=== PATIENT | male | born 1955 | race Caucasian/White ===

== ENCOUNTER 2017-10-06 05:40 | Inpatient (IN) | payer OTHER ==
[2017-10-02 16:17] LABS: ADD MAN DIFF? NO
[2017-10-02 16:29] LABS: WHITE BLOOD COUNT 15.1 10^3/ul (4.8-10.8)
[2017-10-02 16:29] LABS: BASOPHIL # 0.1 10^3/ul (0.0-0.1); BASOPHILS % 0.5 % (0.0-2.0); HEMATOCRIT 47.1 % (42.0-52.0); HEMOGLOBIN 15.8 g/dl (14.0-18.0); LYMPHOCYTES # 1.6 10^3/ul (0.8-2.9); LYMPHOCYTES % 10.8 % (15.0-51.0); MEAN CORPUSCULAR HEMOGLOBIN 27.2 pg (29.0-33.0); MEAN CORPUSCULAR HGB CONC 33.5 g/dl (32.0-37.0); MEAN CORPUSCULAR VOLUME 81.1 fl (82.0-101.0); MEAN PLATELET VOLUME 9.4 fl (7.4-10.4); MONOCYTE # 1.4 10^3/ul (0.3-0.9); MONOCYTES % 9.5 % (0.0-11.0); NEUTROPHIL # 11.6 10^3/ul (1.6-7.5); NEUTROPHILS % 76.9 % (39.0-77.0); PLATELET COUNT 378 10^3/UL (140-415); RED BLOOD COUNT 5.81 10^6/ul (4.70-6.10); RED CELL DISTRIBUTION WIDTH 12.7 % (11.5-14.5)
[2017-10-06] MEDS: LACTATED RINGER'S 1,000 ML (ENTER RATE) IV* (06:00)
[2017-10-06] MEDS: CEFAZOLIN 2 GM/50 ML (PMX) 50 ML IVPB (06:48)
[2017-10-06] MEDS ORDERED: CEFAZOLIN 1 GM INJ (07:00)
[2017-10-06] MEDS ORDERED: MIDAZOLAM 1 MG/ML 2 ML INJ (07:11)
[2017-10-06] MEDS ORDERED: GELATIN SIZE 100 SPONGE (07:20)
[2017-10-06] MEDS ORDERED: THROMBIN 5000 UNIT VIAL (07:20)
[2017-10-06] MEDS: BUPIVACAINE 0.25% (MPF) 30 ML INJ (07:38)
[2017-10-06] MEDS: POLYMYXIN/BACITRACIN 1L IRRIG (07:38)
[2017-10-06] MEDS ORDERED: LIDOCAINE 2% (SDV) 5 ML INJ (07:58)
[2017-10-06] MEDS ORDERED: FAMOTIDINE 20 MG INJ (07:58)
[2017-10-06] MEDS ORDERED: ONDANSETRON 4 MG INJ (07:58)
[2017-10-06] MEDS ORDERED: DEXAMETHASONE 4 MG/ML 1 ML INJ (07:58)
[2017-10-06] MEDS ORDERED: PROPOFOL 20 ML (07:58)
[2017-10-06] MEDS ORDERED: SUCCINYLCHOLINE CHLORIDE 100 MG/5 ML SYG IV (07:58)
[2017-10-06] MEDS ORDERED: ROCURONIUM 50 MG INJ (07:58)
[2017-10-06] MEDS ORDERED: EPHEDrine SULFATE 50 MG/5 ML SYG ×2 (07:59→09:38)
[2017-10-06] MEDS ORDERED: THROMBIN(HUM PLAS)/FIBRINOG/CA 5 ML VIAL TOP (08:26)
[2017-10-06] MEDS ORDERED: NEOSTIGMINE 3 MG/3 ML SYRINGE (08:59)
[2017-10-06] MEDS ORDERED: GLYCOPYRROLATE 0.4 MG INJ ×2 (08:59→09:24)
[2017-10-06] MEDS ORDERED: HYDROmorphONE (0.2 MG/ML) 10ML SYG IV (09:00)
[2017-10-06] MEDS ORDERED: ONDANSETRON 4 MG INJ IV ×2 (09:00→10:30)
[2017-10-06] MEDS ORDERED: FENTAnyl 50 MCG/ML VIAL IV (09:00)
[2017-10-06] MEDS ORDERED: DIPHENHYDRAMINE 50 MG INJ IV (09:00)
[2017-10-06] MEDS ORDERED: PROCHLORPERAZINE 10 MG INJ IV (09:00)
[2017-10-06] MEDS ORDERED: MEPERIDINE 25 MG INJ IV (09:00)
[2017-10-06] MEDS ORDERED: ACETAMINOPHEN 1000MG/100ML IV 100 ML (09:33)
[2017-10-06] MEDS: DEXTROSE 5%-0.45% NACL 1,000 ML IV ×2 (10:14→19:33)
[2017-10-06] MEDS ORDERED: HYDROmorphONE 0.2 MG/ML PCA (10:25)
[2017-10-06] MEDS ORDERED: morphine 1 MG/ML 30 ML (PCA) (10:28)
[2017-10-06] MEDS ORDERED: BETHANECHOL 25 MG TAB PO (10:30)
[2017-10-06] MEDS ORDERED: ZOLPIDEM 5 MG TAB PO (10:30)
[2017-10-06] MEDS ORDERED: HYDROCODONE/APAP (5/325) TAB PO (10:30)
[2017-10-06] MEDS ORDERED: DIAZEPAM 5 MG/ML SYG IM (10:30)
[2017-10-06] MEDS ORDERED: PROCHLORPERAZINE 10 MG TAB PO (10:30)
[2017-10-06] MEDS ORDERED: CEPASTAT LOZENGE MT (10:30)
[2017-10-06] MEDS ORDERED: TRIMETHOBENZAMIDE 100 MG/ML VIAL IM (10:30)
[2017-10-06] MEDS ORDERED: NACL 0.9% 3 ML SYG IV (10:30)
[2017-10-06] MEDS ORDERED: NALOXONE (0.4 MG/ML) INJ IV (10:30)
[2017-10-06] MEDS: morphine 1 MG/ML 30 ML (PCA) IV (10:39)
[2017-10-06] MEDS: CEFAZOLIN 1 GM/50 ML (PMX) 50 ML IVPB ×3 (12:19→23:29)
[2017-10-06] MEDS: DIAZEPAM 5 MG TAB PO ×2 (17:45→21:54)
[2017-10-06] MEDS: RANITIDINE 150 MG TAB PO (20:24)
[2017-10-06] MEDS: ATORVASTATIN 20 MG TAB PO (20:24)
[2017-10-07 05:10] LABS: HEMATOCRIT 37.7 % (42.0-52.0); HEMOGLOBIN 12.6 g/dl (14.0-18.0)
[2017-10-07] MEDS: CEFAZOLIN 1 GM/50 ML (PMX) 50 ML IVPB (05:32)
[2017-10-07] MEDS: LANSOPRAZOLE 30 MG CAP PO (05:32)
[2017-10-07] MEDS: DEXTROSE 5%-0.45% NACL 1,000 ML IV ×2 (05:33→15:15)
[2017-10-07 05:40] LABS: ANION GAP 13 (8-16); BLOOD UREA NITROGEN 11 mg/dl (7-20); CALCIUM 8.7 mg/dl (8.4-10.2); CARBON DIOXIDE 29 mmol/L (21-31); CHLORIDE 102 mmol/L (97-110); CREATININE 0.82 mg/dl (0.61-1.24); GLUCOSE 122 mg/dl (70-220); POTASSIUM 3.9 mmol/L (3.5-5.1); SODIUM 140 mmol/L (135-144)
[2017-10-07] MEDS: LACTATED RINGER'S 1,000 ML (ENTER RATE) IV* (05:46)
[2017-10-07 06:05] LABS: FREE T4 (FREE THYROXINE) 1.12 ng/dl (0.78-2.44)
[2017-10-07 06:20] LABS: THYROID STIMULATING HORMONE 0.828 MIU/L (0.465-4.680)
[2017-10-07] MEDS: HYDROCODONE/APAP (5/325) TAB PO ×2 (08:57→12:59)
[2017-10-07] MEDS: DOCUSATE SODIUM 100 MG CAP PO ×2 (08:58→21:17)
[2017-10-07] MEDS: BETHANECHOL 25 MG TAB PO ×2 (08:58→12:59)
[2017-10-07] MEDS: ASCORBIC ACID 500 MG TAB PO ×2 (08:58→21:15)
[2017-10-07] MEDS: FERROUS SULFATE (EC) 325 MG TAB PO ×3 (08:58→21:15)
[2017-10-07] MEDS: RANITIDINE 150 MG TAB PO ×2 (08:58→21:17)
[2017-10-07] MEDS: NEBIVOLOL 5 MG TAB PO ×2 (09:00→21:17)
[2017-10-07 09:30] LABS: ADD UMIC YES; UR ASCORBIC ACID NEGATIVE (NEGATIVE); UR BACTERIA FEW /HPF (NONE SEEN); UR BILIRUBIN (Dip) NEGATIVE (NEGATIVE); UR BLOOD (Dip) 1+ mg/dL (NEGATIVE); UR CLARITY CLEAR (CLEAR); UR COLOR STRAW (YELLOW); UR GLUCOSE (Dip) NEGATIVE (NEGATIVE); UR KETONES (Dip) NEGATIVE (NEGATIVE); UR LEUKOCYTE ESTERASE (Dip) NEGATIVE Leu/ul (NEGATIVE); UR NITRITE (Dip) NEGATIVE (NEGATIVE); UR RBC 2 /HPF (0-5); UR SPECIFIC GRAVITY (Dip) 1.004 (1.003-1.030); UR TOTAL PROTEIN (Dip) NEGATIVE (NEGATIVE); UR UROBILINOGEN (Dip) NEGATIVE (NEGATIVE); UR WBC 0 /HPF (0-5)
[2017-10-07] MEDS: DIAZEPAM 5 MG TAB PO (17:39)
[2017-10-07] MEDS: ATORVASTATIN 20 MG TAB PO (21:15)
[2017-10-08] MEDS: HYDROCODONE/APAP (5/325) TAB PO (01:31)
[2017-10-08] MEDS: DEXTROSE 5%-0.45% NACL 1,000 ML IV ×3 (02:14→22:14)
[2017-10-08] MEDS: LACTATED RINGER'S 1,000 ML (ENTER RATE) IV* (06:00)
[2017-10-08] MEDS: LANSOPRAZOLE 30 MG CAP PO (06:20)
[2017-10-08] MEDS: DOCUSATE SODIUM 100 MG CAP PO ×2 (08:42→21:27)
[2017-10-08] MEDS: TAMSULOSIN (SR) 0.4 MG CAP PO ×2 (08:42→21:28)
[2017-10-08] MEDS: FERROUS SULFATE (EC) 325 MG TAB PO ×3 (08:42→21:27)
[2017-10-08] MEDS: BETHANECHOL 25 MG TAB PO ×3 (08:42→23:48)
[2017-10-08] MEDS: RANITIDINE 150 MG TAB PO ×2 (08:42→21:28)
[2017-10-08] MEDS: ASCORBIC ACID 500 MG TAB PO ×2 (08:42→21:29)
[2017-10-08] MEDS: ACETAMINOPHEN 325 MG TAB PO ×2 (14:45→20:07)
[2017-10-08] MEDS: AL HYDROX/MG HYDROX/SIMETH 30 ML CUP PO (20:07)
[2017-10-08] MEDS: NEBIVOLOL 5 MG TAB PO (21:28)
[2017-10-08] MEDS: ATORVASTATIN 20 MG TAB PO (21:28)
[2017-10-09] MEDS: LACTATED RINGER'S 1,000 ML (ENTER RATE) IV* (06:00)
[2017-10-09] MEDS: BETHANECHOL 25 MG TAB PO ×4 (06:01→23:23)
[2017-10-09] MEDS: LANSOPRAZOLE 30 MG CAP PO (06:01)
[2017-10-09] MEDS: DEXTROSE 5%-0.45% NACL 1,000 ML IV ×2 (08:14→17:10)
[2017-10-09] MEDS: FERROUS SULFATE (EC) 325 MG TAB PO ×3 (08:22→20:12)
[2017-10-09] MEDS: DOCUSATE SODIUM 100 MG CAP PO ×2 (08:22→20:14)
[2017-10-09] MEDS: TAMSULOSIN (SR) 0.4 MG CAP PO ×2 (08:22→20:14)
[2017-10-09] MEDS: ASCORBIC ACID 500 MG TAB PO ×2 (08:22→20:12)
[2017-10-09] MEDS: RANITIDINE 150 MG TAB PO ×2 (08:22→20:14)
[2017-10-09] MEDS: ACETAMINOPHEN 325 MG TAB PO ×2 (11:31→20:48)
[2017-10-09] MEDS: ATORVASTATIN 20 MG TAB PO (20:12)
[2017-10-09] MEDS: NEBIVOLOL 5 MG TAB PO (20:13)
[2017-10-09] MEDS: DIPHENHYDRAMINE 50 MG CAP PO (23:23)
[2017-10-10] MEDS: DEXTROSE 5%-0.45% NACL 1,000 ML IV (03:26)
[2017-10-10] MEDS: LACTATED RINGER'S 1,000 ML (ENTER RATE) IV* (03:27)
[2017-10-10] MEDS: BETHANECHOL 25 MG TAB PO (06:11)
[2017-10-10] MEDS: LANSOPRAZOLE 30 MG CAP PO (06:11)
[2017-10-10] MEDS: DOCUSATE SODIUM 100 MG CAP PO (09:19)
[2017-10-10] MEDS: ASCORBIC ACID 500 MG TAB PO (09:19)
[2017-10-10] MEDS: FERROUS SULFATE (EC) 325 MG TAB PO (09:19)
[2017-10-10] MEDS: RANITIDINE 150 MG TAB PO (09:19)
[2017-10-10] MEDS: TAMSULOSIN (SR) 0.4 MG CAP PO (09:20)
== END 2017-10-10 10:19 | disposition home or self-care (01) | DRG 519 ==
LOC: REC 05:40 → MS1 10:51
PROVIDERS: Orthopaedic Surgery
PROC: 01NB0ZZ Release Lumbar Nerve, Open Approach (ICD-10-PCS; principal; 2017-10-06 07:04)
PROC: 00UT0JZ Supplement Spinal Meninges with Synthetic Substitute, Open Approach (ICD-10-PCS; 2017-10-06 07:04)
PROC: 4A11X4G Monitoring of Peripheral Nervous Electrical Activity, Intraoperative, External Approach (ICD-10-PCS; 2017-10-06 07:04)
PROC: 0T9B70Z Drainage of Bladder with Drainage Device, Via Natural or Artificial Opening (ICD-10-PCS; 2017-10-06 07:04)
DX: M48.061 Spinal stenosis, lumbar region without neurogenic claudication (principal); G97.41 Accidental puncture or laceration of dura during a procedure; I10 Essential (primary) hypertension; M54.18 Radiculopathy, sacral and sacrococcygeal region; R33.9 Retention of urine, unspecified; E03.9 Hypothyroidism, unspecified; E78.00 Pure hypercholesterolemia, unspecified; K21.9 Gastro-esophageal reflux disease without esophagitis; Y83.8 Other surgical procedures as the cause of abnormal reaction of the patient, or of later complication, without mention of misadventure at the time of the procedure
CPT/HCPCS: 72020; 80048; 81001; 84439; 84443; 85014; 85018; 85025; 86850; 86900; 86901; 86920; 87086; 97116; 97161; 97530

== ENCOUNTER 2017-11-26 05:23 | Inpatient (IN) | payer OTHER ==
[~2017-11-26 05:23] MED LIST: LACTATED RINGER'S 1,000 ML IV*
[2017-11-26] MEDS ORDERED: THROMBIN(HUM PLAS)/FIBRINOG/CA 5 ML VIAL TOP (06:36)
[2017-11-26] MEDS ORDERED: SUCCINYLCHOLINE CHLORIDE 100 MG/5 ML SYG IV (06:52)
[2017-11-26] MEDS ORDERED: LIDOCAINE 2% (SDV) 5 ML INJ (06:52)
[2017-11-26] MEDS ORDERED: PROPOFOL 20 ML (06:52)
[2017-11-26] MEDS ORDERED: ROCURONIUM 50 MG INJ (06:52)
[2017-11-26] MEDS ORDERED: DEXAMETHASONE 4 MG/ML 1 ML INJ (06:57)
[2017-11-26] MEDS ORDERED: ONDANSETRON 4 MG INJ (06:57)
[2017-11-26] MEDS ORDERED: FAMOTIDINE 20 MG INJ (06:57)
[2017-11-26] MEDS ORDERED: EPHEDrine SULFATE 50 MG/5 ML SYG (07:00)
[2017-11-26] MEDS ORDERED: CEFAZOLIN 1 GM INJ (07:00)
[2017-11-26] MEDS: CEFAZOLIN 2 GM/50 ML (PMX) 50 ML IVPB (07:14)
[2017-11-26] MEDS ORDERED: PHENYLephrine (100 MCG/ML) 5ML SYG (07:19)
[2017-11-26] MEDS: POLYMYXIN/BACITRACIN 1L IRRIG (07:29)
[2017-11-26] MEDS: BUPIVACAINE 0.25% (MPF) 30 ML INJ (07:29)
[2017-11-26] MEDS: GELATIN SIZE 100 SPONGE (08:06)
[2017-11-26] MEDS: THROMBIN 5000 UNIT VIAL (08:06)
[2017-11-26] MEDS ORDERED: SUGAMMADEX SODIUM 200 MG/2 ML VIAL IV (08:54)
[2017-11-26] MEDS ORDERED: HYDROmorphONE (0.2 MG/ML) 10ML SYG IV ×2 (09:16→09:30)
[2017-11-26] MEDS: HYDROmorphONE (0.2 MG/ML) 10ML SYG IV (09:27)
[2017-11-26] MEDS ORDERED: DIPHENHYDRAMINE 50 MG INJ IV (09:30)
[2017-11-26] MEDS ORDERED: MEPERIDINE 25 MG INJ IV (09:30)
[2017-11-26] MEDS ORDERED: LABETALOL HCL 20MG INJ IV (09:30)
[2017-11-26] MEDS ORDERED: hydrALAzine 20 MG INJ IV (09:30)
[2017-11-26] MEDS: HYDROmorphONE 0.2 MG/ML PCA IV (09:51)
[2017-11-26] MEDS ORDERED: NALOXONE (0.4 MG/ML) INJ IV (10:00)
[2017-11-26] MEDS ORDERED: PROCHLORPERAZINE 10 MG TAB PO (10:00)
[2017-11-26] MEDS ORDERED: ZOLPIDEM 5 MG TAB PO (10:00)
[2017-11-26] MEDS ORDERED: TRIMETHOBENZAMIDE 100 MG/ML VIAL IM (10:00)
[2017-11-26] MEDS ORDERED: AL HYDROX/MG HYDROX/SIMETH 30 ML CUP PO (10:00)
[2017-11-26] MEDS ORDERED: DIAZEPAM 5 MG TAB PO (10:00)
[2017-11-26] MEDS ORDERED: CEPASTAT LOZENGE MT (10:00)
[2017-11-26] MEDS ORDERED: BETHANECHOL 25 MG TAB PO (10:00)
[2017-11-26] MEDS ORDERED: DIAZEPAM 5 MG/ML SYG IM (10:00)
[2017-11-26] MEDS ORDERED: HYDROCODONE/APAP (5/325) TAB PO ×2 (10:00)
[2017-11-26] MEDS ORDERED: DIPHENHYDRAMINE 50 MG CAP PO (10:00)
[2017-11-26] MEDS ORDERED: NACL 0.9% 3 ML SYG IV (10:00)
[2017-11-26] MEDS ORDERED: ONDANSETRON 4 MG INJ IV (10:00)
[2017-11-26] MEDS: ONDANSETRON 4 MG INJ IV (10:16)
[2017-11-26] MEDS: CEFAZOLIN 1 GM/50 ML (PMX) 50 ML IVPB ×3 (12:14→23:24)
[2017-11-26] MEDS: DEXTROSE 5%-0.45% NACL 1,000 ML IV ×2 (12:15→19:31)
[2017-11-26] MEDS: ACETAMINOPHEN 325 MG TAB PO ×2 (14:14→21:51)
[2017-11-26] MEDS: TAMSULOSIN (SR) 0.4 MG CAP PO (20:21)
[2017-11-26] MEDS: BETHANECHOL 25 MG TAB PO (20:21)
[2017-11-26] MEDS: ATORVASTATIN 20 MG TAB PO (20:21)
[2017-11-26] MEDS ORDERED: RANITIDINE 150 MG TAB PO (21:00)
[2017-11-26] MEDS: NEBIVOLOL 5 MG TAB PO (21:45)
[2017-11-27 05:18] LABS: HEMATOCRIT 36.2 % (42.0-52.0)
[2017-11-27] MEDS: DEXTROSE 5%-0.45% NACL 1,000 ML IV (05:31)
[2017-11-27 05:58] LABS: ANION GAP 13 (8-16); BLOOD UREA NITROGEN 10 mg/dl (7-20); CALCIUM 9.3 mg/dl (8.4-10.2); CARBON DIOXIDE 27 mmol/L (21-31); CHLORIDE 105 mmol/L (97-110); CREATININE 0.76 mg/dl (0.61-1.24); GLUCOSE 112 mg/dl (70-220); POTASSIUM 3.8 mmol/L (3.5-5.1); SODIUM 141 mmol/L (135-144)
[2017-11-27] MEDS: ACETAMINOPHEN 325 MG TAB PO ×3 (06:08→16:59)
[2017-11-27] MEDS: PANTOPRAZOLE (EC) 40 MG TAB PO (06:08)
[2017-11-27] MEDS: CEFAZOLIN 1 GM/50 ML (PMX) 50 ML IVPB (06:08)
[2017-11-27] MEDS ORDERED: BETHANECHOL 25 MG TAB PO (08:00)
[2017-11-27] MEDS: NEBIVOLOL 5 MG TAB PO (09:00)
[2017-11-27] MEDS ORDERED: NEBIVOLOL 5 MG TAB PO (09:00)
[2017-11-27] MEDS: FERROUS SULFATE (EC) 325 MG TAB PO ×2 (09:42→13:00)
[2017-11-27] MEDS: DOCUSATE SODIUM 100 MG CAP PO (09:42)
[2017-11-27] MEDS: TAMSULOSIN (SR) 0.4 MG CAP PO (09:42)
[2017-11-27] MEDS: BETHANECHOL 25 MG TAB PO (09:43)
[2017-11-27] MEDS: ASCORBIC ACID 500 MG TAB PO (09:44)
== END 2017-11-27 18:04 | disposition home or self-care (01) | DRG 27 ==
LOC: REC 05:23 → MS1 10:11
PROC: 00U20KZ Supplement Dura Mater with Nonautologous Tissue Substitute, Open Approach (ICD-10-PCS; principal; 2017-11-26 06:56)
PROC: 0QB00ZZ Excision of Lumbar Vertebra, Open Approach (ICD-10-PCS; 2017-11-26 06:56)
DX: G97.82 Other postprocedural complications and disorders of nervous system (principal); I10 Essential (primary) hypertension; E78.5 Hyperlipidemia, unspecified; G96.19 Other disorders of meninges, not elsewhere classified; R33.9 Retention of urine, unspecified
CPT/HCPCS: 72020; 80048; 85014; 85018; 86850; 86900; 86901; 86920; 87086; 97116; 97162; 97530